=== PATIENT | male | born 1950 | race Caucasian/White ===

== ENCOUNTER 2020-03-22 09:16 | Outpatient (REF) | payer OTHER, MEDICARE, SELFPAY ==
[2020-03-22 09:46] LABS: COVID-19 Test Negative (Negative)
== END 2020-03-22 09:17 | disposition home or self-care (01) ==
LOC: HO.LAB 09:16
PROVIDERS: Visit Provider Internal Medicine
DX: Z20.828 Contact with and (suspected) exposure to other viral communicable diseases (principal)
CPT/HCPCS: 87635

== ENCOUNTER → 2021-01-04 08:36 | Outpatient (BNVA) | payer OTHER, SELFPAY | PROVIDERS: PCP Nurse Practitioner; Visit Provider Internal Medicine | DX: I48.0 Paroxysmal atrial fibrillation (principal); I10 Essential (primary) hypertension; I73.9 Peripheral vascular disease, unspecified | CPT/HCPCS: 93005 ==

== ENCOUNTER 2021-01-10 15:23 | Outpatient (REF) | payer OTHER, SELFPAY ==
[2021-01-10 16:36] LABS: Hematocrit 41.8 % (42-52); Hemoglobin 13.5 g/dl (14.0-18.0); Mean Corpuscular HGB Conc 32.3 g/dl (31.0-36.0); Mean Corpuscular Hemoglobin 30.5 pg (27.0-33.0); Mean Corpuscular Volume 94.6 fL (80-98); Mean Platelet Volume 10.3 fL (9.4-12.4); Platelet Count 175 X10*3/uL (160-400); Red Blood Count 4.42 X10*6/uL (4.60-5.80); Red Cell Distribution Width 12.5 % (11.0-16.0); White Blood Count 6.7 X10*3/uL (4.8-10.8)
[2021-01-10 16:59] LABS: Anion Gap 12 (12-20); Blood Urea Nitrogen 18 mg/dL (9-16); Calcium 10.1 mg/dL (8.4-10.2); Carbon Dioxide 27 mmol/L (22-29); Chloride 107 mmol/L (96-108); Estimated Glomerular Filt Rate > 60; Glucose Random 81 mg/dL (60-115); Potassium 4.3 mmol/L (3.3-5.1); Sodium 142 mmol/L (135-145)
== END 2021-01-10 15:24 | disposition home or self-care (01) ==
LOC: HO.LAB 15:23
PROVIDERS: PCP Nurse Practitioner; Visit Provider Internal Medicine
DX: I48.0 Paroxysmal atrial fibrillation (principal)
CPT/HCPCS: 36415; 80048; 85027

== ENCOUNTER → 2021-07-05 08:14 | Outpatient (BNVA) | payer OTHER, SELFPAY | PROVIDERS: PCP Nurse Practitioner; Visit Provider Internal Medicine ==

== ENCOUNTER → 2022-03-15 13:15 | Outpatient (RCR) | payer OTHER, SELFPAY ==
[2020-06-02 09:42] LABS: SARS-COV-2 PCR UMBRL Not Detected
== END | disposition home or self-care (01) ==
LOC: HO.EMPCOV 05-31 11:24
PROVIDERS: Visit Provider Internal Medicine
DX: Z20.828 Contact with and (suspected) exposure to other viral communicable diseases (principal)
CPT/HCPCS: 36415; C9803; U0003

== ENCOUNTER → 2022-08-28 09:36 | Outpatient (BNVA) | payer BC, SELFPAY | PROVIDERS: PCP Nurse Practitioner; Visit Provider Internal Medicine | DX: Z13.89 Encounter for screening for other disorder (principal) ==

== ENCOUNTER 2024-06-29 09:34 | Outpatient (AMB) | payer BC, SELFPAY ==
[2024-06-29 09:46] VITALS: BP 150/60; PULSE 61; BMI 30.4
--- NOTE | 2024-06-29 09:46 | MHC.OFFVIS ---
Vital Signs 06/29/24 09:46 Height 5 ft 8 in Weight 199 lb 11.821 oz BMI 30.4 BP 150/60 H Blood Pressure Location Lt brachial Position Sitting Pulse 61 Intake Visit Reasons: follow up Sterile Process Tech Required: No Accompanied by: Self / Same As Patient Allergies Penicillins Allergy (Intermediate, Verified 08/28/22 09:44) RASH Medication List - Last Reconciled 06/29/24 by Compa Cain MD amlodipine 7.5 mg (1.5 x 5 mg) PO DAILY atorvastatin 40 mg PO DAILY finasteride 5 mg PO QPM levothyroxine 100 mcg PO DAILY metoprolol succinate ER 25 mg PO DAILY metoprolol succinate ER 100 mg PO DAILY rivaroxaban (Xarelto) 20 mg PO DAILY 90 days HPI Comments Details: Filippo returns for follow-up. Last seen in 2022. To recall, in 2018, he was admitted to the hospital with atrial fibrillation and rapid rate, converted to sinus rhythm. Currently on beta-blockers. He has also tried diltiazem in the past but blood pressure went too high. Blood pressure meds also been changed over time. He states that in the last 2 years he has generally been good. No new concerns. 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 Hence quite active without any major limitations. We are already stress test last time but he states he never pursued it. [facility] Medical History (Updated 08/28/22 @ 10:20 by Compa Cain MD) Peripheral vascular disease Essential hypertension Paroxysmal atrial fibrillation Surgical History (Updated 06/29/24 @ 09:51 by Sima Cheatham CMA) S/P bladder tumor excision with fulguration History of appendectomy Family History Father No problems noted. Mother Cancer Social History Alcohol intake: current Alcohol intake frequency: holidays/special occasions only Patient Tobacco Use Status: Former Tobacco user Review of Systems Const Denies chills, Denies fatigue, Denies fever(s), Denies weight gain and Denies weight loss ENT Denies dizziness Card Denies chest pain, Denies leg edema, Denies lightheadedness, Denies palpitations, Denies dyspnea on exertion, Denies orthopnea and Denies other Resp Denies cough and Denies dyspnea on exertion GI Denies hematochezia and Denies change in stool character Musc Denies abnormal gait, Denies muscle weakness, Denies numbness, Denies radiating pain into limb and Denies tingling Neuro Denies abnormal gait, Denies dizziness, Denies numbness and Denies tingling Endo Denies fatigue and Denies palpitations Physical Exam Vital Signs: Last Vital Signs Pulse 61 06/29/24 09:46 BP 150/60 H 06/29/24 09:46 BMI result Body Mass Index 30.4 Const General: comfortable and no acute distress Orientation/consciousness: patient oriented x3 HEENT Other: Unremarkable Head: Yes normal to inspection Neck Neck: Yes normal visual inspection Chest Chest palpation & inspection: normal inspection of the chest Resp Auscultation: clear to auscultation bilaterally Cardio Palpation: normal PMI Heart sounds: S1 normal heart sound present, S2 normal heart sound present, no gallops, no murmurs and no rubs GI Palpation (GI): Soft to palpation Back/Spine/Pelvis Other: unremarkable Skin General skin exam: no rashes or lesions noted Neuro General: patient oriented x3 Extrem General: Yes normal to inspection Psych Mental Status: mental status grossly normal Office Procedures EKG Details: EKG with sinus rhythm at 61/Min; no significant ST-T changes and otherwise unremarkable. [place]. [address]-[id number], Complete Assessment & Plan Assessment & Plan (1) Paroxysmal atrial fibrillation: Code(s): I48.0 - Paroxysmal atrial fibrillation Category: Medical Plan: No recent issues. Continue beta-blockers. Continue Xarelto. (2) Essential hypertension: Code(s): I10 - Essential (primary) hypertension Category: Medical Plan: Blood pressure still seems high. Patient is also quite stubborn and not interested in optimizing things. Any case, suggested that we will go up on amlodipine dosing. (3) Peripheral vascular disease: Code(s): I73.9 - Peripheral vascular disease, unspecified Category: Medical Plan: Remote history of stenting in the left lower extremity but details not available. Check lipids. We will need to assess coronary status and obtain an echocardiogram/stress test. He states he will not be able to exercise and hence do pharmacological stress. In fact, ordered last time but not completed. Orders: Orders Lipid Panel Today E78.5 - Hyperlipidemia, unspecified Liver Panel Today I25.10 - Atherosclerotic heart disease of [place] coronary artery without angina pectoris CA lexiscan stress w elio Today I10 - Essential (primary) hypertension, I20.9 - Angina pectoris, unspecified CA echo transthoracic complete Today I25.10 - Atherosclerotic heart disease of [place] coronary artery without angina pectoris, I48.0 - Paroxysmal atrial fibrillation [place] cardiolite stress test Today I10 - Essential (primary) hypertension, R07.2 - Precordial pain Medications: New amlodipine 10 mg PO DAILY 90 tabs 3RF I10 - Essential (primary) hypertension Discontinued amlodipine Discontinued Reason: Doctor's Order 7.5 mg (1.5 x 5 mg) PO DAILY 135 tabs 3RF Coding Level of Care Code Est Pt Level 4 (85315) Diagnoses Paroxysmal atrial fibrillation I48.0 Essential hypertension I10 Peripheral vascular disease I73.9 CPT Codes EKG - CPT: 14485-[id number], Complete ([id number])
--- OUTSIDE RECORDS SUMMARY | 2024-06-29 09:57 | XMS_ITS | Continuity of Care Document ---
Author Organization [facility] Address [address] [place] [address] [address] [place], [place] Phone [phone] Care Team Providers Care Informatica Architect Name Role Phone NATO MONTENEGRO M.D. Care Team Information Rec eiver Unavailable Social History Type Date Description Comments Sex Unknown
== END 2024-06-29 10:14 | disposition home or self-care (01) ==
PROVIDERS: PCP Nurse Practitioner; Visit Provider Internal Medicine
DX: I48.0 Paroxysmal atrial fibrillation (principal); I10 Essential (primary) hypertension; I73.9 Peripheral vascular disease, unspecified
CPT/HCPCS: 93010; 99214

== ENCOUNTER → 2024-06-29 09:34 | Outpatient (BNVA) | payer BC, SELFPAY | PROVIDERS: PCP Nurse Practitioner; Visit Provider Internal Medicine | DX: I48.0 Paroxysmal atrial fibrillation (principal); I10 Essential (primary) hypertension; I73.9 Peripheral vascular disease, unspecified; E78.5 Hyperlipidemia, unspecified; I25.119 Atherosclerotic heart disease of native coronary artery with unspecified angina pectoris; R07.2 Precordial pain | CPT/HCPCS: 93005 ==

== ENCOUNTER 2025-03-19 08:43 | Outpatient (AMB) | payer BC, SELFPAY ==
[2025-03-19 08:56] VITALS: BP 124/60; PULSE 57; BMI 28.6
--- NOTE | 2025-03-19 08:56 | MHC.OFFVIS ---
Vital Signs 03/19/25 08:56 Height 5 ft 8 in Weight 188 lb 4.396 oz BMI 28.6 BP 124/60 Blood Pressure Location Lt brachial Position Sitting Pulse 57 Pulse Source Pulse Oximeter Intake Visit Reasons: Follow up (HS) Consultant Intern Required: No Allergies Penicillins Allergy (Intermediate, Verified 03/19/25 08:58) RASH Medication List - Last Reconciled 03/19/25 by Eliane Martines NP-C amlodipine 10 mg PO DAILY atorvastatin 40 mg PO DAILY finasteride 5 mg PO QPM levothyroxine 100 mcg PO DAILY metoprolol succinate ER 100 mg PO DAILY metoprolol succinate ER 25 mg PO DAILY rivaroxaban (Xarelto) 20 mg PO DAILY 90 days HPI HPI Follow up (HS): Details: Brennan is a 74-year-old male past medical history of hypertension, hyperlipidemia, peripheral vascular disease, paroxysmal atrial fibrillation who presents for follow-up. Today he reports he has been feeling well with no concerning symptoms. He denies chest discomfort, shortness of breath, heart palpitation, leg cramping, edema. 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 He reports compliance with his medications. No bleeding issues reported. Has upcoming PCP visit and plans to get lab work at that time. He is not interested in the nuclear stress test which was ordered last visit but is willing to get the echocardiogram. [facility] Medical History Peripheral vascular disease Essential hypertension Paroxysmal atrial fibrillation Surgical History S/P bladder tumor excision with fulguration History of appendectomy Family History Father No problems noted. Mother Cancer Social History Alcohol intake: current Alcohol intake frequency: holidays/special occasions only Patient Tobacco Use Status: Former Tobacco user Review of Systems Const All systems reviewed & are unremarkable except as noted in HPI and below ENT Denies dizziness Card Denies chest pain, Denies chest pain at rest, Denies chest pain with activity, Denies rapid heart rate, Denies pedal edema, Denies edema, Denies leg edema, Denies lightheadedness, Denies palpitations, Denies dyspnea, Denies dyspnea on exertion and Denies orthopnea Resp Denies cough, Denies dyspnea and Denies dyspnea on exertion GI Denies hematochezia and Denies change in stool character Musc Denies abnormal gait, Denies limited range of motion, Denies muscle cramps, Denies muscle weakness, Denies numbness, Denies radiating pain into limb, Denies stiffness and Denies tingling Neuro Denies abnormal gait, Denies dizziness, Denies numbness and Denies tingling Endo Denies palpitations Physical Exam Vital Signs: Last Vital Signs Pulse 57 03/19/25 08:56 BP 124/60 03/19/25 08:56 BMI result Body Mass Index 28.6 Const General: cooperative, healthy appearing, comfortable and no acute distress Orientation/consciousness: patient oriented x3 Neck Neck: Yes normal visual inspection and Yes no JVD Resp Effort & Inspection: normal respiratory effort Auscultation: clear to auscultation bilaterally, no crackles, no rales, no rhonchi and no wheezes Cardio Rate: regular rate Rhythm: regular rhythm Heart sounds: S1 normal heart sound present, S2 normal heart sound present, no gallops, no murmurs and no rubs Neuro General: patient oriented x3 Extrem General: Yes normal to inspection, No no pedal edema and No calf tenderness Psych Appearance: grossly normal Mental Status: mental status grossly normal Speech and movement: Normal speech and movement present Assessment & Plan Assessment & Plan (1) Paroxysmal atrial fibrillation: Code(s): I48.0 - Paroxysmal atrial fibrillation Category: Medical Plan: History of paroxysmal atrial fibrillation that is treated with rhythm control. He is currently on metoprolol XL 100 mg tablet and 25 mg tablet daily. Pulse is regular on examination, clinically in sinus rhythm. No concerning heart palpitations. No recent echo for review. Echo previously ordered and he says he will call centralized scheduling and set up. Nuclear stress test previously ordered and he declines. He plans to obtain labs in the near future with his PCP. Continue metoprolol. Continue Xarelto for anticoagulation. Cardiology follow-up 1 year, sooner if needed. (2) Peripheral vascular disease: Code(s): I73.9 - Peripheral vascular disease, unspecified Category: Medical Plan: History of peripheral vascular disease with lower extremity stent. No reports of claudication. Continue his Xarelto and atorvastatin. (3) Essential hypertension: Code(s): I10 - Essential (primary) hypertension Category: Medical Plan: Blood pressure goal less than 130/80. Well controlled at this time. Continue amlodipine and metoprolol. Plan Time spent on chart review, documentation, interview and assessment Coding Level of Care Code Est Pt Level 4 (06555) Complex EM visit Add On G2211 Diagnoses Paroxysmal atrial fibrillation I48.0 Peripheral vascular disease I73.9 Essential hypertension I10 Time Spent (min) 28
== END 2025-03-19 09:28 | disposition home or self-care (01) ==
LOC: HO.HCS 08:43
PROVIDERS: PCP Nurse Practitioner; Visit Provider Nurse Practitioner Family
DX: I48.0 Paroxysmal atrial fibrillation (principal); I73.9 Peripheral vascular disease, unspecified; I10 Essential (primary) hypertension
CPT/HCPCS: 99214